=== PATIENT | male | born 2005 | race African-American/Black ===

== ENCOUNTER 2025-02-10 13:41 | Emergency (ER) | payer OTHER, MEDICAID ==
[~2025-02-10] VITALS: Ht 172.7 cm; Wt 63.0 kg
[2025-02-10 13:58] VITALS: O2SAT 100
[2025-02-10] MEDS ORDERED: ACET-2708 MT (17:33)
[2025-02-10 17:55] VITALS: BP 121/86; PULSE 59; RESP 18; TEMP 36.8; O2SAT 100
== END 2025-02-10 18:00 | disposition home or self-care (01) ==
LOC: ER 13:41
DX: M54.50 Low back pain, unspecified (principal); M54.2 Cervicalgia; M79.10 Myalgia, unspecified site; V49.9XXA Car occupant (driver) (passenger) injured in unspecified traffic accident, initial encounter; Y93.89 Activity, other specified; Y92.410 Unspecified street and highway as the place of occurrence of the external cause; Y99.8 Other external cause status
CPT/HCPCS: 70486; 99284